=== PATIENT | female | born 1995 | race Caucasian/White ===

== ENCOUNTER 2016-02-29 22:11 | Emergency (ER) | payer MEDICAID ==
[2016-03-01] MEDS ORDERED: AMOXICILLIN TRYHYD 250 MG/5 ML SUSP 80 ML (ER DISP) PO ONE (01:27)
[2016-03-01] MEDS ORDERED: IBUPROFEN 600 MG TABLET PO ONE (01:28)
--- NOTE | 2016-03-01 01:29 | ER Document Report ---
ED General - General Chief Complaint: Ear Pain Stated Complaint: EAR ACHE Notes: Patient is a 20-year-old female without past medical history who presents with 24 hours of severe right ear pain. Described ear pain is a constant, severe, throbbing pain. Nothing improves or worsens the pain. Denies a history of similar symptoms in the past. She has not seen her primary care physician regarding today's concerns. She denies any associated headache, neck pain, weakness, numbness, or fever. TRAVEL OUTSIDE OF THE [place] IN LAST 30 DAYS: No - Related Data Allergies/Adverse Reactions: No Known Allergies Allergy (Unverified 02/29/16 22:36) Past Medical History - General Information source: Patient - Social History Smoking Status: Never Smoker Chew tobacco use (# tins/day): No Frequency of alcohol use: None Drug Abuse: None Lives with: Parents Family History: Reviewed & Not Pertinent Patient has suicidal ideation: No Patient has homicidal ideation: No Renal/ Medical History: Denies: Hx Peritoneal Dialysis Review of Systems - Review of Systems Notes: Constitutional: Negative for fever. HENT: Positive for right ear pain Eyes: Negative for visual changes. Cardiovascular: Negative for chest pain. Respiratory: Negative for shortness of breath. Gastrointestinal: Negative for abdominal pain, vomiting or diarrhea. Genitourinary: Negative for dysuria. Musculoskeletal: Negative for back pain. Skin: Negative for rash. Neurological: Negative for headaches, weakness or numbness. 10 point ROS negative except as marked above and in HPI. Physical Exam - Vital signs Vitals: Temp Pulse Resp BP Pulse Ox 98.1 F 79 16 112/74 99 02/29/16 22:25 02/29/16 22:25 02/29/16 22:25 02/29/16 22:25 02/29/16 22:25 Interpretation: Normal Notes: PHYSICAL EXAMINATION: GENERAL: Well-appearing, well-nourished and in no acute distress. HEAD: Atraumatic, normocephalic. EYES: sclera anicteric, conjunctiva are normal. ENT: Moist mucous membranes. Right TM is bulging and erythematous with a purulent effusion. Left TM clear. NECK: Normal range of motion LUNGS: Normal work of breathing HEART: 2+ radial pulses bilaterally EXTREMITIES: no pitting or edema. No cyanosis. NEUROLOGICAL: No focal neurological deficits. Moves all extremities spontaneously and on command. PSYCH: Normal mood, normal affect. SKIN: Warm, Dry, normal turgor, no rashes or lesions noted. Course - Re-evaluation Re-evalutation: 03/01/16 01:28 Presentation is most consistent with an acute right otitis media with a bulging , erythematous right TM. Patient is otherwise well in appearance. Nontoxic and vitals are within normal limits. Will treat with amoxicillin and ibuprofen. On exam and history do not suspect an acute meningitis, malignant otitis externa, or any other acute left any pathology.At this time will discharge with return precautions and follow-up recommendations. Verbal discharge instructions given a the bedside and opportunity for questions given. Medication warnings reviewed. Patient is in agreement with this plan and has verbalized understanding of return precautions and the need for primary care follow-up in the next 24-72 hours. - Vital Signs Vital signs: Temp Pulse Resp BP Pulse Ox 98.1 F 68 16 110/73 98 02/29/16 22:33 03/01/16 02:07 03/01/16 02:07 03/01/16 02:07 03/01/16 02:07 Discharge - Discharge Clinical Impression: Otitis media Qualifiers: Otitis media type: suppurative Laterality: right Chronicity: acute Recurrence: not specified as recurrent Spontaneous tympanic membrane rupture: without spontaneous rupture Qualified Code(s): H66.001 - Acute suppurative otitis media without spontaneous rupture of ear drum, right ear Condition: Good Disposition: HOME, SELF-CARE Additional Instructions: You've been diagnosed as having an ear infection. Take all the antibiotic until it is finished. Return if you become lethargic, have persistent vomiting , become confused, have facial swelling, worsening pain despite antibiotics, or any other symptoms that are concerning to you. Take ibuprofen 600mg every 6 hours as needed for pain. Prescriptions: Amoxicillin 1 tab PO TID #30 tab Referrals: LINNETTE LLOYD MD [Primary Care Provider] - Follow up as needed
[2016-03-01] MEDS ORDERED: AMOXICILLIN TRIHYDRATE 500 MG CAPSULE PO ONE (01:45)
[2016-03-01 02:10] VITALS: BP 110/73
== END 2016-03-01 02:07 | disposition home or self-care (01) ==
LOC: ER 22:11
DX: H66.001 Acute suppurative otitis media without spontaneous rupture of ear drum, right ear (principal); H92.01 Otalgia, right ear
CPT/HCPCS: 99282; J3490

== ENCOUNTER 2016-04-20 22:41 | Observation (INO) | payer SELFPAY ==
--- NOTE | 2016-04-20 22:53 | ER Document Report ---
ED Medical Screen (RME) - General Chief Complaint: Flank Pain Stated Complaint: BACK PAIN RADIATES TO PELVIC Time seen by provider: 22:50 Mode of Arrival: Ambulatory Information source: Patient Notes: 21-year-old female presents to ED for right flank pain with back pain for a couple hours. States she also has nausea and vomiting. She has vomited 3 over times over the last 2 days. States she last menstrual period was from the April 18. States her periods are usually a lot longer than that and this one was a little early. States she got discharged from the [employer] in October and has had suicidal thoughts but no action and no plan. States she is receiving treatment from Medicaid 50 mg of Zoloft. I have greeted and performed a rapid initial assessment of this patient. A comprehensive ED assessment and evaluation of the patient, analysis of test results and completion of medical decision making process will be conducted by an additional ED providers. TRAVEL OUTSIDE OF THE [place] IN LAST 30 DAYS: No - Related Data Allergies/Adverse Reactions: No Known Allergies Allergy (Unverified 02/29/16 22:36) Past Medical History - Social History Frequency of alcohol use: None Drug Abuse: None Renal/ Medical History: Denies: Hx Peritoneal Dialysis Physical Exam - Vital signs Vitals: Temp Pulse Resp BP Pulse Ox 98.2 F 94 16 119/76 98 04/20/16 22:45 04/20/16 22:45 04/20/16 22:45 04/20/16 22:45 04/20/16 22:45 Course - Vital Signs Vital signs: Temp Pulse Resp BP Pulse Ox 98.2 F 94 16 119/76 98 04/20/16 22:45 04/20/16 22:45 04/20/16 22:45 04/20/16 22:45 04/20/16 22:45
[2016-04-20 23:20] LABS: ABSOLUTE LYMPHOCYTES (AUTO) 2.7 10^3/uL (0.5-4.7); ABSOLUTE MONOCYTES (AUTO) 0.5 10^3/uL (0.1-1.4); ABSOLUTE NEUT (AUTO) 4.6 10^3/uL (1.7-8.2); BASOPHILS % (AUTO) 0.3 % (0-2); EOSINOPHILS % (AUTO) 0.5 % (0-6); HEMATOCRIT 37.8 % (36.0-47.0); HEMOGLOBIN 12.8 g/dL (12.0-15.5); HGB HCT DIFFERENCE 0.6; LYMPHOCYTES % (AUTO) 33.9 % (13-45); MEAN CORPUSCULAR HEMOGLOBIN 31.6 pg (27.0-33.4); MEAN CORPUSCULAR VOLUME 93 fl (80-97); MONOCYTES % (AUTO) 6.5 % (3-13); RED BLOOD COUNT 4.07 10^6/uL (3.72-5.28); RED CELL DISTRIBUTION WIDTH 13.8 % (11.5-14.0); SEGMENTED NEUTROPHILS % (AUTO) 58.8 % (42-78); WHITE BLOOD COUNT 7.9 10^3/uL (4.0-10.5)
[2016-04-20 23:25] LABS: APPEARANCE,URINE SLIGHTLY-CLOUDY; BILIRUBIN,URINE NEGATIVE (NEGATIVE); GLUCOSE, URINE NEGATIVE (NEGATIVE); KETONES,URINE NEGATIVE (NEGATIVE); LEUKOCYTE ESTERASE,URINE TRACE (NEGATIVE); NITRITE,URINE NEGATIVE (NEGATIVE); PROTEIN,URINE NEGATIVE (NEGATIVE); URINE SPECIFIC GRAVITY 1.013; UROBILINOGEN,URINE NEGATIVE mg/dL (<2.0)
[2016-04-20 23:31] LABS: ALANINE AMINOTRANSFERASE 27 U/L (9-52); ALBUMIN 4.9 g/dL (3.5-5.0); ALKALINE PHOSPHATASE 101 U/L (38-126); ANION GAP 13 (5-19); ASPARTATE AMINO TRANSFERASE 27 U/L (14-36); BILIRUBIN,TOTAL 0.8 mg/dL (0.2-1.3); BLOOD UREA NITROGEN 14 mg/dL (7-20); CALCIUM 10.3 mg/dL (8.4-10.2); CARBON DIOXIDE 26 mmol/L (22-30); CHLORIDE 103 mmol/L (98-107); CREATININE RESULT 0.55 mg/dL (0.52-1.25); GLUCOSE 105 mg/dL (75-110); LIPASE 114.1 U/L (23-300); POTASSIUM 4.4 mmol/L (3.6-5.0); TOTAL PROTEIN 8.2 g/dL (6.3-8.2)
[2016-04-21] MEDS ORDERED: OXYCODONE-ACETAMINOPHEN 5-325 MG TABLET PO ONE ×2 (01:44→03:20)
[2016-04-21] MEDS ORDERED: ONDANSETRON 4 MG TAB.RAPDIS PO ONE (01:44)
--- NOTE | 2016-04-21 01:46 | ER Document Report ---
ED GI/ - General Chief Complaint: Flank Pain Stated Complaint: BACK PAIN RADIATES TO PELVIC Time seen by provider: 01:45 Mode of Arrival: Ambulatory Notes: Patient is a 21-year-old female that comes emergency department for chief complaint of sharp right-sided pelvic pain that started several hours ago, she states she feels like it radiates around her side to her lower back on the right side. She states she has vomited 3 times, states she still has constant pain in that area. Patient denies any other locations of pain, denies fever, denies abnormal bowel movements, she states she does have a vaginal discharge more than usual but denies any current vaginal bleeding. LMP about one week ago. TRAVEL OUTSIDE OF THE [place] IN LAST 30 DAYS: No - Related Data Allergies/Adverse Reactions: No Known Allergies Allergy (Verified 04/21/16 02:12) Home Medications: Current Home Medications Sertraline HCl [Sertraline HCl] 1 tab PO DAILY 04/21/16 [History] Past Medical History - General Information source: Patient - Social History Smoking Status: Never Smoker Frequency of alcohol use: None Drug Abuse: None Lives with: Spouse/Significant other Family History: Reviewed & Not Pertinent Patient has suicidal ideation: No Patient has homicidal ideation: No - Medical History Medical History: Negative Renal/ Medical History: Denies: Hx Peritoneal Dialysis Surgical Hx: Negative - Immunizations Hx Diphtheria, Pertussis, Tetanus Vaccination: Yes Review of Systems - Review of Systems Constitutional: No symptoms reported EENT: No symptoms reported Cardiovascular: No symptoms reported Respiratory: No symptoms reported Gastrointestinal: See HPI Genitourinary: See HPI Female Genitourinary: See HPI Musculoskeletal: No symptoms reported Skin: No symptoms reported Hematologic/Lymphatic: No symptoms reported Neurological/Psychological: No symptoms reported Physical Exam - Vital signs Vitals: Temp Pulse Resp BP Pulse Ox 98.2 F 94 16 119/76 98 04/20/16 22:45 04/20/16 22:45 04/20/16 22:45 04/20/16 22:45 04/20/16 22:45 Interpretation: Normal - General General appearance: Alert In distress: Moderate - Patient standing at bedside, bent over slightly, appears to be in some pain - HEENT Head: Normocephalic, Atraumatic Eyes: Normal Conjunctiva: Normal Extraocular movements intact: Yes Eyelashes: Normal Pupils: PERRL Nasal: Normal Mouth/Lips: Normal Mucous membranes: Normal Pharynx: Normal Neck: Normal - Respiratory Respiratory status: No respiratory distress Chest status: Nontender Breath sounds: Normal. No: Decreased air movement, Wheezing Chest palpation: Normal - Cardiovascular Rhythm: Regular. No: Tachycardia Heart sounds: Normal auscultation, S1 appreciated, S2 appreciated Murmur: No - Abdominal Inspection: Normal Distension: No distension Bowel sounds: Normal Tenderness: Tender - Patient is not tender in the abdomen but is very tender in the right pelvic area on examination with guarding - Back Back: Normal, Nontender. No: Tender - Extremities General upper extremity: Normal inspection, Nontender, Normal strength, Normal temperature General lower extremity: Normal inspection, Nontender, Normal strength, Normal temperature - Neurological Neuro grossly intact: Yes Cognition: Normal Orientation: AAOx4 Oniel Coma Scale Eye Opening: Spontaneous Oniel Coma Scale Verbal: Oriented Oniel Coma Scale Motor: Obeys Commands Boles Coma Scale Total: 15 Speech: Normal Motor strength normal: LUE, RUE, LLE, RLE Sensory: Normal - Psychological Associated symptoms: Normal affect, Normal mood - Skin Skin Temperature: Warm Skin Moisture: Dry Skin Color: Normal Course - Re-evaluation Re-evalutation: No leukocytosis, CBC and chemistry are unremarkable. Urinalysis shows some white blood cells but no nitrates, has no dysuria or suprapubic tenderness , no flank pain on examination. Culture sent. Patient complains of vaginal discharge, however no significant discharge is noted on examination. Gonorrhea and Chlamydia still pending. Patient still in pain after Percocet, will be given another 1, sent for ultrasound. Discussed with Dr. Munguia per [facility] protocol. Ultrasound showing concern for torsion and large 8.4 cm abnormality in the area of the right ovary for patient's pain is located. Called and spoke with Dr. Bell, [employer] agricultural extension educator, she will come evaluate the patient. Dr. Bell states that patient will be admitted to the hospital for observation. - Vital Signs Vital signs: Temp Pulse Resp BP Pulse Ox 98.0 F 70 20 110/81 98 04/21/16 03:28 04/21/16 03:28 04/21/16 03:28 04/21/16 03:28 04/21/16 03:28 - Laboratory Result Diagrams: 04/20/16 22:55 04/20/16 22:55 Laboratory results interpreted by me: 04/20/16 04/20/16 22:55 23:00 Calcium 10.3 H Ur Leukocyte Esterase TRACE H Discharge - Discharge Clinical Impression: Pelvic pain, Ovarian enlargement, right Vomiting Qualifiers: Vomiting type: unspecified Vomiting Intractability: non-intractable Nausea presence: with nausea Qualified Code(s): R11.2 - Nausea with vomiting, unspecified Condition: Stable Disposition: ADMITTED OBSERVATION Admitting Provider: [facility] Admitted: Labor and Delivery
[2016-04-21 04:57] LABS: CHLAM PCR NOT DETECTED (NOT DETECT)
[2016-04-21] MEDS ORDERED: RINGERS SOLUTION,LACTATED 1,000 ML IV PRN (07:17)
[2016-04-21] MEDS ORDERED: RINGERS SOLUTION,LACTATED 1,000 ML IV ONE (08:00)
[2016-04-21] MEDS ORDERED: MEDROXYPROGESTERONE ACET INJ 150 MG/1 ML VIAL IM ONE (11:00)
--- NOTE | 2016-04-21 11:49 | PDOC PROGRESS REPORT ---
Subjective Progress Note for:: 04/21/16 Subjective:: Pt denies pain , nausea, vomiting currently. Pain controlled with percocet when it occurs. Physical Exam - Physical Exam Vital Signs: Temp Pulse Resp BP Pulse Ox 97.9 F 56 L 16 103/62 100 04/21/16 08:23 04/21/16 08:23 04/21/16 08:23 04/21/16 08:23 04/21/16 08:23 Intake & Output 04/20/16 04/21/16 04/22/16 06:59 06:59 06:59 Weight 50.8 kg General appearance: PRESENT: no acute distress, cooperative Respiratory exam: PRESENT: clear to auscultation altaf GI/Abdominal exam: PRESENT: normal bowel sounds, soft, tenderness - rlq tender, no guarding/rebound. no mass possible. ABSENT: distended, guarding, mass, organolmegaly, rebound Extremities exam: PRESENT: full ROM. ABSENT: calf tenderness, clubbing, pedal edema Result Impressions: Transvaginal US 04/21/16 03:20 IMPRESSION: 8.4 cm nonspecific enlargement of the right ovary. For a non- gravid patient, differential diagnosis includes hemorrhagic cysts, neoplasm, and at risk for torsion. Sonographic surveillance recommended in 6 weeks, or sooner as clinically warranted. Assessment & Plan - Diagnosis (1) Pelvic pain Is this a current diagnosis for this admission?: Yes - Time Time Spent with patient: 15-24 minutes Medications reviewed and adjusted accordingly: Yes Disposition: plan ct abd/pelvis w contrast today to further evaluate right adnexa. My review of sono results shows poorly defined adnexal mass. Patient currently stable w minimal sypmtoms. Possible laparoscopy w cystectomy
[2016-04-21 15:55] VITALS: BP 96/62
[2016-04-22] MEDS ORDERED: SERTRALINE HCL 50 MG TABLET PO SCH (10:00)
== END 2016-04-21 20:30 | disposition home or self-care (01) ==
LOC: ER 22:41 → 2N 04-21 05:42 → EH 04-21 05:54 → UNDOADMOB 04-21 05:54 → 2N 04-21 08:18 → EH 04-21 08:18
PROVIDERS: ADMIT Specialist; ATTEND Specialist
DX: R10.2 Pelvic and perineal pain (principal); R11.2 Nausea with vomiting, unspecified
CPT/HCPCS: 99285; 96374; 36415; 87086; 87210; 83690; 84703; 85025; 87088; 80053; 81001; 87491; 87591; 76830; 93976; 74177; G0378 ×2; S0119; J1050; J7120

== ENCOUNTER 2016-06-11 05:27 | Day surgery (SDC) | payer MEDICAID, OTHER ==
[2016-06-09 10:51] LABS: HEMATOCRIT 36.9 % (36.0-47.0); HEMOGLOBIN 12.6 g/dL (12.0-15.5); HGB HCT DIFFERENCE 0.9; MEAN CORPUSCULAR HEMOGLOBIN 31.4 pg (27.0-33.4); MEAN CORPUSCULAR HGB CONC 34.3 g/dL (32.0-36.0); MEAN CORPUSCULAR VOLUME 92 fl (80-97); RED BLOOD COUNT 4.03 10^6/uL (3.72-5.28); RED CELL DISTRIBUTION WIDTH 13.2 % (11.5-14.0); WHITE BLOOD COUNT 5.4 10^3/uL (4.0-10.5)
[2016-06-09 10:52] LABS: APPEARANCE,URINE CLEAR; BILIRUBIN,URINE NEGATIVE (NEGATIVE); GLUCOSE, URINE NEGATIVE (NEGATIVE); KETONES,URINE NEGATIVE (NEGATIVE); LEUKOCYTE ESTERASE,URINE NEGATIVE (NEGATIVE); NITRITE,URINE NEGATIVE (NEGATIVE); PROTEIN,URINE NEGATIVE (NEGATIVE); URINE SPECIFIC GRAVITY 1.017; UROBILINOGEN,URINE NEGATIVE mg/dL (<2.0)
[2016-06-09 11:17] LABS: ALANINE AMINOTRANSFERASE 23 U/L (9-52); ALBUMIN 4.3 g/dL (3.5-5.0); ALKALINE PHOSPHATASE 100 U/L (38-126); ANION GAP 16 (5-19); ASPARTATE AMINO TRANSFERASE 20 U/L (14-36); BILIRUBIN,DIRECT 0.3 mg/dL (0.0-0.4); BILIRUBIN,TOTAL 1.2 mg/dL (0.2-1.3); BLOOD UREA NITROGEN 12 mg/dL (7-20); CALCIUM 9.6 mg/dL (8.4-10.2); CARBON DIOXIDE 23 mmol/L (22-30); CHLORIDE 106 mmol/L (98-107); CREATININE RESULT 0.66 mg/dL (0.52-1.25); GLUCOSE 96 mg/dL (75-110); POTASSIUM 4.7 mmol/L (3.6-5.0); SODIUM 144.8 mmol/L (137-145)
[~2016-06-11 05:27] MED LIST: CEFAZOLIN 1 GM/D5W RTU 1 GM/50 ML RTUPB IV PRN; LACTATED RINGERS 1000 ML IV PRN; LIDOCAINE 0.5% INJ-PF (5 MG/ML) 50 ML SDV SUBCUT PRN
[2016-06-11] MEDS ORDERED: BUPIVACAINE HCL 0.25 % INJ/PF (2.5 MG/1 ML) 30 ML VIAL ONE (06:39)
[2016-06-11] MEDS ORDERED: ACETAMINOPHEN 100 ML IV ONE (06:52)
[2016-06-11] MEDS ORDERED: FENTANYL CITRATE INJ/PF 250 MCG/5 ML AMPULE ONE (06:52)
[2016-06-11] MEDS ORDERED: MIDAZOLAM 2 MG/2 ML INJ ONE (06:52)
[2016-06-11] MEDS ORDERED: LIDOCAINE 2% INJ-PF (100 MG/5 ML) SYRINGE ONE (06:53)
[2016-06-11] MEDS ORDERED: PROPOFOL INJ 200 MG/20 ML VIAL IV ONE (06:53)
[2016-06-11] MEDS ORDERED: ONDANSETRON HCL INJ/PF 4 MG/2 ML SDV ONE ×2 (06:54→13:27)
[2016-06-11] MEDS ORDERED: DEXAMETHASONE SOD PHOSPHATE INJ 4 MG/1 ML VIAL ONE ×2 (06:54→13:27)
[2016-06-11] MEDS ORDERED: EPHEDRINE SULFATE INJ 50 MG/1 ML AMPULE ONE (06:55)
[2016-06-11] MEDS ORDERED: PROMETHAZINE HCL INJ 25 MG/1 ML VIAL IV PRN ×5 (08:22→12:05)
[2016-06-11] MEDS ORDERED: FENTANYL CITRATE INJ/PF 100 MCG/2 ML AMPUL IV PRN ×5 (08:22→11:48)
[2016-06-11] MEDS ORDERED: MEPERIDINE HCL/PF INJ 25 MG/1 ML DISP.SYRIN IV PRN ×2 (08:22→11:48)
[2016-06-11] MEDS ORDERED: DIPHENHYDRAMINE HCL 50 MG/ML VIAL IV PRN ×2 (08:22→11:48)
[2016-06-11] MEDS ORDERED: FENTANYL CITRATE INJ/PF 100 MCG/2 ML AMPUL ONE ×2 (10:01→11:56)
[2016-06-11] MEDS ORDERED: FAMOTIDINE INJ/PF 20 MG/2 ML SDV IV ONE (11:46)
[2016-06-11] MEDS ORDERED: MORPHINE SULFATE 10 MG/ML INJ IV PRN (11:48)
[2016-06-11] MEDS: FENTANYL CITRATE INJ/PF 100 MCG/2 ML AMPUL IV PRN ×2 (11:57→11:59)
[2016-06-11] MEDS ORDERED: RINGERS SOLUTION,LACTATED 1,000 ML IV PRN (12:04)
[2016-06-11] MEDS ORDERED: OXYCODONE HCL IR 5 MG TABLET PO PRN ×2 (12:05→12:06)
[2016-06-11] MEDS ORDERED: HYDROMORPHONE HCL INJ/PF 2 MG/ML AMPULE IV PRN ×2 (12:05→12:06)
--- NOTE | 2016-06-11 12:44 | OPERATIVE REPORT E ---
Operative Report NAME: DALIA ROBBINS : 1995 AGE: 21Y DATE OF SURGERY: 06/11/2016 ROOM: PREOPERATIVE DIAGNOSIS: Large right ovarian cyst suspicious for dermoid. POSTOPERATIVE DIAGNOSIS: Right ovarian dermoid cyst status post right ovarian cystectomy. OPERATION PERFORMED: Robotic right ovarian cystectomy. SURGEON: ARIES THOMAS M.D. ANESTHESIA: General endotracheal. ESTIMATOR: Junior ESTIMATED BLOOD LOSS: 250 mL. SPECIMEN TO PATHOLOGY: Right ovarian cyst, which did rupture during the procedure. FINDINGS: There was approximately a 10 cm dermoid in the right ovarian that entirely filled the posterior cul-de-sac. The left ovary had a very small physiologic cyst approximately 1-2 cm. The tubes appeared normal. Uterus appeared normal. DESCRIPTION OF PROCEDURE: After discussing risks, benefits, and alternatives of the procedure and obtaining informed consent, patient was taken to the operating room where general anesthesia was achieved. She was positioned in the dorsal lithotomy position, prepped and draped in the usual standard fashion. Bladder was drained with Long catheter. A speculum was placed in the vagina and a small Vcare uterine manipulator was placed to aid in uterine manipulation. Attention was then turned to the patient's abdomen. Each of the trocar sites was premedicated with 0.25% Marcaine. A 10 mm incision was made in the superior umbilical fold. The fascia was grasped and elevated. The fascia was incised and the abdomen entered under direct visualization. The 10 mm origin trocar was placed and the balloon on it insufflated. The abdomen was insufflated and the patient placed in Trendelenburg. A left lower quadrant 8 mm robotic trocar was placed under direct visualization. The pelvis was surveyed with a 5 mm laparoscope. Next, a right lower quadrant robotic 8 mm trocar was placed under direct visualization. The 5 mm AirSeal was placed in the right upper quadrant under direct visualization. The robot was then docked. After placing the robotic camera, the robotic scissors were used in the surgeon's right hand. This was attached to monopolar cautery. The [place] grasper was placed for use in the surgeon's left hand and attached to bipolar cautery. Dr. Pacheco stayed at the patient's bedside to assist. I then went to the operating console. With monopolar scissors, a small incision was made in the ovarian cortex. During this process, there was spill of oily material from the cyst. It was decompressed during this process and the material suctioned by Dr. Pacheco. Next, the incision was extended with the monopolar maikel and the cyst wall was dissected off with blunt dissection and in a twisting fashion. After removal of the ovarian cyst, the robot was undocked as it was too large to remove from any of the accessory ports. The 5 mm laparoscope was brought back to the table. An EndoCatch bag was placed through the port in the superior aspect of the umbilicus and the cyst delivered into that. This was then removed through the umbilical port. The origin trocar was replaced and the pelvis surveyed. Some loose hairs from the cyst were removed with a dolphin grasper. There was bleeding of the cyst base at that time noted. This was refractory to small bursts of cautery. Therefore, attempt was made with Surgicel, but that was not effective. An attempt was made with laparoscopic suturing, but it was technically difficult. Therefore, the decision was made to redock the robot. A 3-0 chromic was placed under direct visualization down the right robotic port by Dr. Pacheco. I was at the console and grasped this after we placed the needle team truck driver for use in the right robotic arm. A grasper was placed in the left arm. The chromic was used in a running fashion to close the ovarian tissue. Approximately shelter down the cystectomy incision, the needle broke off. This was therefore removed. Another 3-0 chromic was placed through the right lower quadrant trocar and I started at the inferior aspect of the cystectomy incision to close the incision. FloSeal was in the meantime placed within the base of the cyst wall. The ends of the chromic were tied. Excellent hemostasis was observed. The pelvis was irrigated copiously. The hemostasis was again assured under pressure at 6. Interceed was placed around the ovary to help prevent future adhesive disease. The trocars were removed. The umbilical port site was closed with 0 Vicryl at the fascial level. Skin incisions were closed with 3-0 Monocryl in a subcuticular fashion. Dermabond was placed over these and then a dressing was placed over the umbilical port. The Vcare uterine manipulator was removed as was the Long catheter. The tenaculum site at the superior aspect of the cervix was having some oozing and this was treated with Monsel and hemostasis assured. Patient was taken out of dorsal lithotomy, awakened from anesthesia, and to recovery in stable condition. All sponge, needle, lap, and instrument counts were correct x2. DICTATING PHYSICIAN: ARIES THOMAS M.D. [id number] PHY#: [id number] ID: [id number] JOB#: [id number] ACCT: [id number] cc:ARIES THOMAS M.D. > MTDD
[2016-06-11] MEDS ORDERED: ROCURONIUM BROMIDE INJ 50 MG/5 ML VIAL IV ONE (13:27)
[2016-06-11] MEDS ORDERED: PHENYLEPHRINE HCL INJ/PF 10 MG/1 ML SDV ONE (13:27)
[2016-06-11] MEDS ORDERED: GLYCOPYRROLATE INJ 0.4 MG/2 ML VIAL ONE (13:27)
[2016-06-11] MEDS ORDERED: METOCLOPRAMIDE HCL INJ/PF 10 MG/2 ML SDV ONE (13:27)
[2016-06-11 16:34] VITALS: BP 103/57
== END 2016-06-11 16:20 | disposition home or self-care (01) ==
LOC: OROUT 05:27
PROVIDERS: ATTEND Specialist
PROC: 8E0W4CZ Robotic Assisted Procedure of Trunk Region, Percutaneous Endoscopic Approach (ICD-10-PCS; 2016-06-11)
PROC: 0UB04ZZ Excision of Right Ovary, Percutaneous Endoscopic Approach (ICD-10-PCS; principal; 2016-06-11 07:30)
DX: D27.0 Benign neoplasm of right ovary (principal); D64.9 Anemia, unspecified; F41.9 Anxiety disorder, unspecified; Z79.899 Other long term (current) drug therapy
CPT/HCPCS: 58662; S2900; 36415; 80053; 81001; 81025; 840; 85027; 86850; 86900; 86901; 88305; C1765; J0131; J0690; J1100; J1170; J2001; J2250; J2370; J2405; J2704; J2765; J3010; J3490; S0028

== ENCOUNTER 2018-11-12 05:07 | Emergency (ER) | payer SELFPAY ==
[2018-11-12] MEDS ORDERED: HYDROCODONE/ACETAMINOPHEN 5-325 MG TABLET PO ONE (06:56)
[2018-11-12] MEDS ORDERED: PENICILLIN V POTASSIUM 500 MG TABLET PO ONE (06:56)
[2018-11-12] MEDS ORDERED: NAPROXEN 250 MG TABLET PO ONE (06:56)
--- NOTE | 2018-11-12 07:14 | ER Document Report ---
Entered by OTTO RALPH SCRIBE 11/12/18 0633 Acting as scribe for:RADHIKA DE MD ED General - General Chief Complaint: Headache Stated Complaint: EAR AND FACIAL PAIN Time Seen by Provider: 11/12/18 06:04 Primary Care Provider: ZENAIDA IVAN MD [Primary Care Provider] - Follow up as needed Mode of Arrival: Ambulatory Information source: Patient, Parent, [facility] Records Notes: This 23-year-old female patient comes emergency room complaining of pain to the left ear area that started 10 days ago with associated headache. She indicates the pain started in the left preauricular area. She has had minimal nasal discharge. She reports some tenderness in palpating manipulating the external ear on the left. She does not notice increase pain when she bites down on the left side toward the back of her mouth. She does report that she saw her primary care on 10/19/2018 for sore throat, dry cough, and asthma attack. She was prescribed Augmentin, albuterol inhaler, and Tessalon Perles. TRAVEL OUTSIDE OF THE [place] IN LAST 30 DAYS: No - Related Data Allergies/Adverse Reactions: No Known Allergies Allergy (Verified 05/29/16 14:33) Past Medical History - General Information source: Patient - Social History Smoking Status: Never Smoker Cigarette use (# per day): No Chew tobacco use (# tins/day): No Drug Abuse: None Family History: Reviewed & Not Pertinent Patient has suicidal ideation: No Patient has homicidal ideation: No Pulmonary Medical History: Reports: Hx Asthma - Immunizations Hx Diphtheria, Pertussis, Tetanus Vaccination: Yes - 2012 Review of Systems - Review of Systems Constitutional: denies: Fever EENT: See HPI, Other - Left facial pain, left ear pain, left jaw pain, left eye pressure Cardiovascular: No symptoms reported Respiratory: No symptoms reported Gastrointestinal: No symptoms reported Genitourinary: No symptoms reported Female Genitourinary: No symptoms reported Musculoskeletal: No symptoms reported Skin: No symptoms reported Hematologic/Lymphatic: No symptoms reported Neurological/Psychological: See HPI, Headaches -: Yes All other systems reviewed and negative Physical Exam - Vital signs Vitals: Temp Pulse Resp BP Pulse Ox 98.3 F 82 16 119/84 100 11/12/18 05:14 11/12/18 05:14 11/12/18 05:14 11/12/18 05:14 11/12/18 05:14 - Notes Notes: PHYSICAL EXAMINATION: GENERAL: Well-appearing, well-nourished and in no acute distress. HEAD: Atraumatic, normocephalic. EYES: Pupils equal round and reactive to light, extraocular movements intact, sclera anicteric, conjunctiva are normal. ENT: nares patent, oropharynx clear without exudates. Moist mucous membranes. The left ear external canal is normal in appearance, however the patient does report a mild discomfort with palpating the external canal. The left TMJ does not appear to be tender and there is no click, pop, or excessive motion. The left TM is normal in appearance. Pressure on the left maxillary sinus causes some discomfort. There is no swelling noted in the face or thickening of the soft tissues and the tender areas. ORAL: The left upper third molar seems to be tender to percuss, reproducing some of the discomfort the patient complains of in the left preauricular area. The gum line on the lateral aspect of this tooth appears to be inflamed. NECK: Normal range of motion, supple without lymphadenopathy LUNGS: Breath sounds clear to auscultation bilaterally and equal. No wheezes rales or rhonchi. HEART: Regular rate and rhythm without murmurs ABDOMEN: Soft, nontender, normoactive bowel sounds. No guarding, no rebound. No masses appreciated. EXTREMITIES: Normal range of motion, no pitting or edema. No cyanosis. NEUROLOGICAL: Cranial nerves grossly intact. Normal speech, normal gait. Normal sensory, motor, and reflex exams. PSYCH: Normal mood, normal affect. SKIN: Warm, Dry, normal turgor, no rashes or lesions noted. Course - Vital Signs Vital signs: Temp Pulse Resp BP Pulse Ox 98.3 F 82 16 119/84 100 11/12/18 05:14 11/12/18 05:14 11/12/18 05:14 11/12/18 05:14 11/12/18 05:14 Discharge - Discharge Clinical Impression: Dental infection Disposition: HOME, SELF-CARE Additional Instructions: Dental Infection: Your left facial pain seems to be coming from your left upper third molar. There appears to be an infection of the gum around one of your teeth, which is probably decayed. Severe swelling or drainage around a tooth usually means a deep dental abscess which usually requires evaluation and treatment by a dentist or oral surgeon. Antibiotics may be prescribed while awaiting dental treatment. If you develop high fever with chills, worsening pain, or increasing swelling in the area, see a dentist or oral surgeon immediately or return to the Emergency Department immediately. Take the medications as prescribed. Take ibuprofen 800 mg every 8 hours, or Aleve 2 tablets every 12 hours. Follow-up with a dentist this week to check your left upper third molar and your left TMJ. RETURN TO THE EMERGENCY ROOM IF ANY NEW OR WORSENING SYMPTOMS. Prescriptions: Hydrocodone/Acetaminophen [[place] 5-325 mg Tablet] 1 tab PO ASDIR PRN #8 tablet PRN Reason: Penicillin V Potassium [Penicillin Vk 500 mg Tablet] 500 mg PO QID #28 tablet Referrals: ZENAIDA IVAN MD [Primary Care Provider] - Follow up as needed Scribe Attestation: 11/12/18 06:54 I personally performed the services described in the documentation, reviewed and edited the documentation which was dictated to the scribe in my presence, and it accurately records my words and actions. I personally performed the services described in the documentation, reviewed and edited the documentation which was dictated to the scribe in my presence, and it accurately records my words and actions.
[2018-11-12 07:36] VITALS: BP 106/71
== END 2018-11-12 07:34 | disposition home or self-care (01) ==
LOC: ER 05:07
DX: K04.7 Periapical abscess without sinus (principal); H92.02 Otalgia, left ear; R51 Headache; R68.84 Jaw pain; R29.818 Other symptoms and signs involving the nervous system; J45.909 Unspecified asthma, uncomplicated
CPT/HCPCS: 99283